=== PATIENT | male | born 1960 | race African-American/Black ===

== ENCOUNTER 2017-10-07 17:53 | Inpatient (IN) | payer OTHER ==
[~2017-10-07] VITALS: Ht 170.2 cm; Wt 65.8 kg
--- NOTE | ~2017-10-07 | EKG ---
[place] [address] [facility] [place] [address] ELECTROCARDIOGRAM REPORT Name: FREDDY BLACK Room #: 203-P [facility] IN M.R.#: [id number] Admission: 10/07/17 Attend Phys: Tres Calix MD Discharge: Date of : 60 Report #: [id number] THIS REPORT FOR: //name// [facility] ED Test Date: 2017-10-07 Test Time: 18:35:13 Pat Name: FREDDY BLACK Department: Room: Gender: M Beta Tester: [facility] : 1960 Requested By: Jose D Hinton Order Number: [id number] MD: Asim Masters Measurements Intervals [place] Rate: 71 P: 75 UT: 166 QRS: 28 QRSD: 105 T: 261 QT: 435 QTc: 473 Interpretive Statements Sinus rhythm LVH with secondary repolarization abnormality No previous ECG available for comparison Electronically Signed On 10-08-2017 9:17:30 CDT by Asim Masters [email or web address] <ELECTRONICALLY SIGNED> By: Asim Masters MD, [facility] 10/08/17 0917 1835 1835 Asim Masters MD, FACC /EPI
[2017-10-07 17:55] VITALS: BP 119/83
[2017-10-07 18:36] LABS: BASOPHILS 0.3 % (0.0-2.0); HEMATOCRIT 35.6 % (42.0-52.0); HEMOGLOBIN 12.1 gm/dL (14.0-18.0); MCH 31.8 pg (26.0-34.0); MCHC 33.8 g/dL (28.0-37.0); MCV 94.1 fL (80.0-100.0); MONOCYTES 4.9 % (1.0-8.0); POLYS 89.8 % (36.0-66.0); RBC 3.79 mil/uL (4.50-6.00)
[2017-10-07 18:43] LABS: ANION GAP 11 mmol/L (7-16); BUN 16 mg/dL (7-18); CALCIUM 7.4 mg/dL (8.5-10.1); CHLORIDE 104 mmol/L (98-107); CO2 28 mmol/L (21-32); CREATININE 0.9 mg/dL (0.7-1.3); GLUCOSE 95 mg/dL (74-106); SODIUM 143 mmol/L (136-145)
[2017-10-07 18:44] LABS: POTASSIUM 2.6 mmol/L (3.5-5.1)
[2017-10-07 18:59] LABS: ALBUMIN 3.2 g/dL (3.4-5.0); SGOT 410 U/L (15-37); SGPT 178 U/L (30-65); TOTAL BILIRUBIN 1.2 mg/dL (<0.1-1.0); TROPONIN-I < 0.04 ng/mL (<0.06)
[2017-10-07 19:12] LABS: PLATELET COUNT 94 thou/uL (150-400)
[2017-10-07] MEDS ORDERED: SEROQUEL 50 MG50 MG PO (19:16)
[2017-10-07] MEDS ORDERED: AMITRIPTYLINE H25 M2 PO (19:17)
[2017-10-07 21:50] VITALS: BP 131/87
[2017-10-07 21:58] LABS: URINE BILIRUBIN NEGATIVE (Negative); URINE BLOOD TRACE (Negative); URINE CLARITY CLEAR; URINE COLOR YELLOW; URINE GLUCOSE-RANDOM* NEGATIVE (Negative); URINE KETONES NEGATIVE (Negative); URINE LEUKOCYTES-REFLEX NEGATIVE (Negative); URINE NITRITE-REFLEX NEGATIVE (Negative); URINE PROTEIN (DIPSTICK) NEGATIVE (Negative); URINE UROBILINOGEN 0.2 E.U./dl (0.2-1.0)
[2017-10-07 22:07] LABS: AMP/METHAMP Negative (Negative); BARBITURATES Negative (Negative); BENZODIAZEPINES Negative (Negative); COCAINE Negative (Negative); METHADONE Negative (Negative); OPIATES Negative (Negative); PCP Negative (Negative)
[2017-10-08] VITALS (8 sets, daily range): BP systolic 108–149; BP diastolic 61–88
[2017-10-08 00:03] LABS: MAGNESIUM 1.3 mg/dL (1.8-2.4); PHOSPHORUS 2.8 mg/dL (2.5-4.9)
[2017-10-08 00:58] LABS: FOLIC ACID 48.7 ng/mL (8.6-58.9)
[2017-10-08 05:09] LABS: HEMATOCRIT 33.2 % (42.0-52.0); MCHC 33.3 g/dL (28.0-37.0); MCV 96.2 fL (80.0-100.0); RBC 3.45 mil/uL (4.50-6.00); RDW 14.3 % (10.5-14.5); WBC 9.2 thou/uL (4.0-11.0)
[2017-10-08 05:19] LABS: CALCIUM 7.1 mg/dL (8.5-10.1); CREATININE 0.8 mg/dL (0.7-1.3); POTASSIUM 3.2 mmol/L (3.5-5.1)
[2017-10-08 05:54] LABS: GGTP 322 U/L (15-85)
[2017-10-08 12:37] LABS: MAGNESIUM 1.7 mg/dL (1.8-2.4); POTASSIUM 3.7 mmol/L (3.5-5.1)
[2017-10-09 03:48] LABS: CALCIUM 7.7 mg/dL (8.5-10.1); CREATININE 0.6 mg/dL (0.7-1.3); MAGNESIUM 1.7 mg/dL (1.8-2.4); PHOSPHORUS 1.7 mg/dL (2.5-4.9)
[2017-10-09 04:23] VITALS: BP 135/92
[2017-10-09 04:44] LABS: ALBUMIN 2.5 g/dL (3.4-5.0); DIRECT BILIRUBIN 0.6 mg/dL (<0.1-0.3); TOTAL BILIRUBIN 1.4 mg/dL (<0.1-1.0); TOTAL PROTEIN 4.9 g/dL (6.4-8.2)
[2017-10-09 07:15] VITALS: BP 156/99
[2017-10-09 11:45] VITALS: BP 163/86
[2017-10-09 12:32] LABS: MAGNESIUM 1.7 mg/dL (1.8-2.4); POTASSIUM 3.4 mmol/L (3.5-5.1)
[2017-10-09 16:17] VITALS: BP 149/94
[2017-10-09 19:15] VITALS: BP 149/98
[2017-10-09 23:30] VITALS: BP 127/84
[2017-10-10 03:35] VITALS: BP 141/91
[2017-10-10 04:04] LABS: HEMOGLOBIN 10.6 gm/dL (14.0-18.0); MCH 31.6 pg (26.0-34.0); MCHC 33.1 g/dL (28.0-37.0); MCV 95.3 fL (80.0-100.0); RBC 3.35 mil/uL (4.50-6.00); RDW 14.3 % (10.5-14.5); WBC 6.8 thou/uL (4.0-11.0)
[2017-10-10 04:19] LABS: ALBUMIN 2.3 g/dL (3.4-5.0); CALCIUM 7.9 mg/dL (8.5-10.1); CREATININE 0.6 mg/dL (0.7-1.3); PHOSPHORUS 2.9 mg/dL (2.5-4.9)
[2017-10-10 04:23] LABS: POTASSIUM 2.9 mmol/L (3.5-5.1)
[2017-10-10 07:10] VITALS: BP 144/93
[2017-10-10 11:00] VITALS: BP 142/104
[2017-10-10 16:20] VITALS: BP 161/106
[2017-10-10 19:42] VITALS: BP 132/96
[2017-10-11 04:44] VITALS: BP 159/106
[2017-10-11 07:50] VITALS: BP 145/97
[2017-10-11 09:04] LABS: CALCIUM 8.3 mg/dL (8.5-10.1); CREATININE 0.6 mg/dL (0.7-1.3); POTASSIUM 3.1 mmol/L (3.5-5.1)
[2017-10-11 11:00] VITALS: BP 146/100
[2017-10-11 15:40] VITALS: BP 155/108
[2017-10-11 19:42] VITALS: BP 154/112
[2017-10-12 04:18] LABS: CALCIUM 7.8 mg/dL (8.5-10.1); CREATININE 0.5 mg/dL (0.7-1.3); POTASSIUM 3.3 mmol/L (3.5-5.1)
[2017-10-12 04:39] LABS: HEMATOCRIT 35.8 % (42.0-52.0); HEMOGLOBIN 11.9 gm/dL (14.0-18.0); MCHC 33.3 g/dL (28.0-37.0); MCV 96.2 fL (80.0-100.0); RBC 3.72 mil/uL (4.50-6.00); RDW 14.8 % (10.5-14.5); WBC 3.3 thou/uL (4.0-11.0)
[2017-10-12 05:31] VITALS: BP 168/113
[2017-10-12 07:40] VITALS: BP 151/104
[2017-10-12 11:00] VITALS: BP 139/100
[2017-10-12 13:17] LABS: MAGNESIUM 1.5 mg/dL (1.8-2.4); POTASSIUM 3.1 mmol/L (3.5-5.1)
[2017-10-12 16:10] VITALS: BP 114/87
[2017-10-12 20:15] VITALS: BP 113/90
[2017-10-13 05:23] VITALS: BP 129/88
[2017-10-13 07:20] VITALS: BP 136/97
[2017-10-13 08:36] LABS: HEMATOCRIT 35.8 % (42.0-52.0); HEMOGLOBIN 11.8 gm/dL (14.0-18.0); MCH 31.5 pg (26.0-34.0); MCHC 32.9 g/dL (28.0-37.0); MCV 95.6 fL (80.0-100.0); RBC 3.75 mil/uL (4.50-6.00); RDW 14.9 % (10.5-14.5); WBC 3.1 thou/uL (4.0-11.0)
[2017-10-13 08:40] LABS: CALCIUM 9.5 mg/dL (8.5-10.1); POTASSIUM 3.4 mmol/L (3.5-5.1)
[2017-10-13 09:01] LABS: ABSOLUTE NEUTROPHILS 1.4 thou/uL (1.4-8.2)
[2017-10-13 09:02] LABS: PLATELET COUNT 196 thou/uL (150-400)
[2017-10-13 11:07] VITALS: BP 112/77
[2017-10-13 15:05] VITALS: BP 141/95
[2017-10-13 19:21] VITALS: BP 142/91
[2017-10-14 04:42] VITALS: BP 122/86
[2017-10-14 07:29] VITALS: BP 143/99
[2017-10-14 11:42] VITALS: BP 127/85
[2017-10-14] MEDS ORDERED: NICOTINE1 EAC2 TRANSDERM (12:06)
[2017-10-14] MEDS ORDERED: BACITRACIN-POL3.5 GM OPHTHALMIC (12:07)
[2017-10-14] MEDS ORDERED: SEROQUEL 100 M100 MG PO (12:07)
[2017-10-14] MEDS ORDERED: PEPCID20 MG PO (12:10)
[2017-10-14] MEDS ORDERED: VITAMIN B-1100 M2 PO (12:10)
[2017-10-14] MEDS ORDERED: ARTIFICIAL TEA1 EACH OPHTHALMIC (12:10)
[2017-10-14 12:32] VITALS: BP 149/85
[2017-10-15] MEDS ORDERED: AMITRIPTYLINE H25 M2 PO (08:43)
[2017-10-15] MEDS ORDERED: PEPCID20 MG PO (08:43)
[2017-10-15] MEDS ORDERED: NORVASC10 MG PO (08:43)
[2017-10-15] MEDS ORDERED: BACITRACIN-POL3.5 GM OPHTHALMIC (08:43)
[2017-10-15] MEDS ORDERED: VITAMIN B-1100 M2 PO (08:43)
== END 2017-10-14 13:20 | DRG 312 ==
LOC: ER 17:53 → 2N 20:57 → EROBS 20:57 → 2N 21:53
PROVIDERS: Hospitalist; Nurse Practitioner Family; Physician Assistant; Psychiatry & Neurology Psychiatry
DX: I95.1 Orthostatic hypotension (principal); M62.82 Rhabdomyolysis; F10.239 Alcohol dependence with withdrawal, unspecified; E87.6 Hypokalemia; R74.0 Nonspecific elevation of levels of transaminase and lactic acid dehydrogenase [LDH]; F41.9 Anxiety disorder, unspecified; F17.210 Nicotine dependence, cigarettes, uncomplicated; E83.42 Hypomagnesemia; F20.9 Schizophrenia, unspecified; F10.229 Alcohol dependence with intoxication, unspecified; F31.9 Bipolar disorder, unspecified; K40.90 Unilateral inguinal hernia, without obstruction or gangrene, not specified as recurrent; Z82.49 Family history of ischemic heart disease and other diseases of the circulatory system; Z81.8 Family history of other mental and behavioral disorders; Z81.1 Family history of alcohol abuse and dependence
CPT/HCPCS: 10081

== ENCOUNTER 2017-10-14 07:48 | Inpatient (IN) | payer OTHER ==
[~2017-10-14] VITALS: Ht 172.7 cm; Wt 56.2 kg
--- NOTE | ~2017-10-14 | H ---
[facility] [place] [address] HISTORY AND PHYSICAL Name: FREDDY BLACK Room #: 503-P [facility] IN M.R.#: [id number] Admission: 10/14/17 Attend Phys: Demarcus Rick MD Discharge: 10/15/17 Date of : 60 Report #: [id number] THIS REPORT FOR: //name// CC: Demarcus Rick [facility] unknown DATE OF SERVICE: 10/14/2017 HISTORY OF PRESENT ILLNESS: This is a 57-year-old -[place] gentleman who has been admitted to acute inpatient rehabilitation after an acute hospital stay for alcohol intoxication with withdrawal, electrolyte abnormalities and rhabdomyolysis with an initial CK of 1118, orthostatic hypotension and elevated liver enzymes secondary to chronic alcohol abuse along with fatty infiltration of the liver. Prior to his acute hospital stay, he had a fall at home with generalized weakness. He has a history of falls and most of the times are related to alcohol intoxication. He remained confused after withdrawal and was admitted with multifactorial encephalopathy. PAST MEDICAL HISTORY: Alcohol abuse, seizures, schizophrenia, anxiety, depression and falls. HABITS: He smokes 10-12 cigarettes every day. He drinks over 2 pints of alcohol daily. He denies illicit drug use. SOCIAL HISTORY: He lives in a house with his mother. There is one entry stair. There are 10 stairs inside to get to his bedroom, which has no bathroom and he has to do the 10 stairs to get to the bathroom. Premorbidly, he was independent for ADLs. He was driving premorbidly. He utilized no assistive device. ALLERGIES: No known drug allergies. CURRENT MEDICATIONS: Thiamine 100 mg daily, nicotine patch 7 mg daily transdermal, Seroquel 100 mg at bedtime, Pepcid 20 mg twice a day, amitriptyline 25 mg at bedtime, bacitracin ophthalmic x 15 doses, Norvasc 10 mg daily and Tears as needed for dry eye. REVIEW OF SYSTEMS: The patient reports anxiety. He denies pain, cough, shortness of breath, nausea or constipation. Remainder of his 12-point review of systems is negative. PHYSICAL EXAMINATION: VITAL SIGNS: 140/93, pulse 79, temperature 98.7 and respirations 18. GENERAL: He is awake and alert. He is oriented x 3. He is very agitated and aggressive appearing. He has clenched fists. NEUROLOGIC: Cranial nerves 2-12 are grossly intact. Sensation is symmetrical. CHEST: Lungs are clear to auscultation. [facility] [address] [place] [address] HISTORY AND PHYSICAL Name: FREDDY BLACK Room #: 503-P [facility] IN [facility].#: [id number] Admission: 10/14/17 Attend Phys: Demarcus Rick MD Discharge: 10/15/17 Date of : 60 Report #: [id number] CARDIAC: Regular rate and rhythm. ABDOMEN: Bowel sounds are positive and soft. GENITOURINARY: Deferred. EXTREMITIES: No lower extremity edema. Functional range of motion is intact in bilateral upper and lower extremities. Mild tremor in the upper extremities. Sit to stand, standby assist and min assist to ambulate a 150 feet with no assistive device. ADL set at min assist. Bed mobility, supervision. Dressing upper body, contact guard assist. The patient is using the wall for stability. SKIN: Warm, dry and intact. LABORATORY DATA: On 10/15, sodium 142, potassium 3.3, BUN 12 and creatinine 0.8. WBC 3.8, hemoglobin 10.0, hematocrit 29.4 and platelets 295. ASSESSMENT AND PLAN: 1. Multifactorial encephalopathy. 2. Gait instability with recurrent falls. 3. Alcohol dependence. 4. Elevated LFTs with fatty liver. 5. Hypokalemia. 6. Rhabdomyolysis, resolved. 7. Hypertension. 8. History of seizure disorder. 9. Depression with anxiety and agitation. 10. Schizophrenia. PLAN: The patient is adamant to discharge to home. He is becoming argumentative and aggressive towards the staff. We will discharge him to home and arrange for home health nursing to monitor his blood pressure, which is elevated. He is instructed to follow up with his [place] care [place] [facility] Information has been given on alcohol abuse counseling and rehab facilities. 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 The patient does seem back to his baseline functional mobility, but does remain a high fall risk at home if intoxicated. Plan of care was discussed with the patient, he states his understanding. <ELECTRONICALLY SIGNED> By: THERESE Drummond 10/15/17 1420 0929 1009 THERESE Drummond /nt
--- NOTE | ~2017-10-14 | H ---
[facility] [place] [address] HISTORY AND PHYSICAL Name: FREDDY BLACK Room #: 503-P [facility] IN M.R.#: [id number] Admission: 10/14/17 Attend Phys: Demarcus Rick MD Discharge: 10/15/17 Date of : 60 Report #: [id number] THIS REPORT FOR: //name// CC: Demarcus Rick [facility] unknown DATE OF SERVICE: 10/14/2017 HISTORY AND PHYSICAL ADDENDUM Please see Leann Shirley's, nurse practitioners, history and physical as well as her same discharge note from today. History and physical examination are as per her note. The patient and his mother are in agreement and desire for him to be directly discharged to back home without participation in the acute in-hospital inpatient rehabilitation program. Arrangements are being made for this. He is to have home health care nursing to further assist post-discharge. Please see the discharge summary. He follows up with [facility] with a plan for him to follow up in one week. <ELECTRONICALLY SIGNED> By: Demarcus Rick MD 10/15/17 1314 0942 0948 Demarcus Rick MD /nt
[~2017-10-14 07:48] MED LIST: AMITRIPTYLINE H25 M2 PO; SEROQUEL 50 MG50 MG PO
[2017-10-14] MEDS ORDERED: NICOTINE1 EAC2 TRANSDERM (12:06)
[2017-10-14] MEDS ORDERED: SEROQUEL 100 M100 MG PO (12:07)
[2017-10-14] MEDS ORDERED: BACITRACIN-POL3.5 GM OPHTHALMIC (12:07)
[2017-10-14] MEDS ORDERED: ARTIFICIAL TEA1 EACH OPHTHALMIC (12:10)
[2017-10-14] MEDS ORDERED: VITAMIN B-1100 M2 PO (12:10)
[2017-10-14] MEDS ORDERED: PEPCID20 MG PO (12:10)
[2017-10-14 13:45] VITALS: BP 153/101
[2017-10-14 14:38] VITALS: BP 154/102
[2017-10-14 19:43] VITALS: BP 140/93
[2017-10-15 05:43] LABS: HEMATOCRIT 29.4 % (42.0-52.0); MCH 32.5 pg (26.0-34.0); MCV 95.5 fL (80.0-100.0); RBC 3.08 mil/uL (4.50-6.00); RDW 14.8 % (10.5-14.5); WBC 3.8 thou/uL (4.0-11.0)
[2017-10-15 06:06] LABS: CALCIUM 8.9 mg/dL (8.5-10.1); CREATININE 0.8 mg/dL (0.7-1.3); POTASSIUM 3.3 mmol/L (3.5-5.1)
[2017-10-15] MEDS ORDERED: BACITRACIN-POL3.5 GM OPHTHALMIC (08:43)
[2017-10-15] MEDS ORDERED: AMITRIPTYLINE H25 M2 PO (08:43)
[2017-10-15] MEDS ORDERED: VITAMIN B-1100 M2 PO (08:43)
[2017-10-15] MEDS ORDERED: NORVASC10 MG PO (08:43)
[2017-10-15] MEDS ORDERED: PEPCID20 MG PO (08:43)
[2017-10-15 08:54] VITALS: BP 140/93
== END 2017-10-15 09:46 | disposition home or self-care (01) | DRG 71 ==
PROVIDERS: Nurse Practitioner Family
DX: G93.41 Metabolic encephalopathy (principal); M62.82 Rhabdomyolysis; F10.239 Alcohol dependence with withdrawal, unspecified; R29.6 Repeated falls; R26.9 Unspecified abnormalities of gait and mobility; Y90.9 Presence of alcohol in blood, level not specified; R79.89 Other specified abnormal findings of blood chemistry; E87.6 Hypokalemia; I10 Essential (primary) hypertension; G40.909 Epilepsy, unspecified, not intractable, without status epilepticus; F41.8 Other specified anxiety disorders; F20.9 Schizophrenia, unspecified; K76.0 Fatty (change of) liver, not elsewhere classified; I95.1 Orthostatic hypotension; K40.90 Unilateral inguinal hernia, without obstruction or gangrene, not specified as recurrent
CPT/HCPCS: 10112